=== PATIENT | female | born 1940 | race Caucasian/White ===

== ENCOUNTER 2017-08-09 08:30 | Outpatient (RCR) | payer OTHER | END 2017-08-10 | disposition home or self-care (01) | LOC: PTY 08:30 | DX: M17.32 Unilateral post-traumatic osteoarthritis, left knee (principal); M54.5 Low back pain; M51.16 Intervertebral disc disorders with radiculopathy, lumbar region ==

== ENCOUNTER 2017-09-24 08:00 | Outpatient (RCR) | payer OTHER | END 2017-10-10 | disposition home or self-care (01) | LOC: PTY 08:00 | DX: M17.32 Unilateral post-traumatic osteoarthritis, left knee (principal); M54.5 Low back pain; M51.16 Intervertebral disc disorders with radiculopathy, lumbar region ==